=== PATIENT | male | born 1995 | race Caucasian/White ===

== ENCOUNTER 2023-07-25 17:43 | Emergency (ER) | payer OTHER ==
[2023-07-25 18:00] VITALS: BMI 19.3
[2023-07-25] MEDS ORDERED: MEROPENEM 1 GM VIAL (RESTRICTED TO ID) IVPB ONE (19:07)
[2023-07-25] MEDS ORDERED: BACITRACIN 0.9 GM PACKET ONE (19:08)
[2023-07-25 19:16] LABS: BASO % 0.5 % (0-2.0); EOS % 0.2 % (0-4.5); HEMATOCRIT 34.5 % (35.4-49); HEMOGLOBIN 11.5 GM/dL (11.7-16.9); LYMPH % 8.4 % (8-40); MCHC 33.3 g/dl (32.0-35.9); MEAN CELL VOLUME 80.8 fl (80-96); MEAN PLT VOLUME 6.3 fl (7.5-11.1); MONO % 8.1 % (3.8-10.2); NEUT % 82.8 % (42.8-82.8); PLATELET COUNT 487 10^3/uL (134-434); RBC 4.27 M/mm3 (4.00-5.60); RDW 14.4 % (11.9-15.9); WHITE BLOOD COUNT 11.1 K/mm3 (4.0-10.0)
[2023-07-25] MEDS ORDERED: BACITRACIN ZINC 15 GM TUBE TOPICAL OINTMENT ONE (19:17)
[2023-07-25 19:20] LABS: INR 1.23 (0.83-1.09); PROTHROMBIN TIME (PATIENT) 13.8 SEC (9.7-13.0)
[2023-07-25 19:23] LABS: ACTIVATED PTT 35.3 SECONDS (25.2-36.5); POTASSIUM 3.7 mmol/L (3.5-5.1)
[2023-07-25] MEDS: BACITRACIN ZINC 15 GM TUBE TOPICAL OINTMENT TP ONE (19:27)
[2023-07-25 19:28] LABS: ALBUMIN 2.5 g/dl (3.4-5.0); BLOOD UREA NITROGEN 10.6 mg/dL (7-18); CALCIUM 8.8 mg/dL (8.5-10.1)
[2023-07-25] MEDS: MEROPENEM 1 GM in DEXTROSE 5%-WATER 100 ML IVPB ONE (19:28)
[2023-07-25] MEDS: SODIUM CHLORIDE 0.9% 500 ML INFUS.BAG IV ONE (19:28)
[2023-07-25 19:31] LABS: CREATININE 0.7 mg/dL (0.55-1.3)
[2023-07-25 19:33] LABS: BILIRUBIN,TOTAL 0.2 mg/dL (0.2-1); TOT PROT 6.6 g/dl (6.4-8.2)
[2023-07-25] MEDS ORDERED: KETOROLAC TROMETHAMINE 15 MG/ML VIAL ONE (21:14)
[2023-07-25] MEDS: KETOROLAC TROMETHAMINE 15 MG/ML VIAL IVPUSH ONE (21:17)
[2023-07-25] MEDS ORDERED: ACETAMINOPHEN INJECTION 100 ML IVPB ONE (21:52)
[2023-07-25] MEDS: ACETAMINOPHEN 1000 MG/100 ML BAG IVPB ONE (21:58)
[2023-07-26 00:44] VITALS: BP 125/79; PULSE 89; RESP 17; TEMP 97.8
== END 2023-07-26 00:55 | disposition short-term general hospital (02) ==
LOC: JER 17:43
PROC: 3E03329 Introduction of Other Anti-infective into Peripheral Vein, Percutaneous Approach (ICD-10-PCS; principal; 2023-07-25)
PROC: 3E0333Z Introduction of Anti-inflammatory into Peripheral Vein, Percutaneous Approach (ICD-10-PCS; 2023-07-25)
PROC: 3E033GC Introduction of Other Therapeutic Substance into Peripheral Vein, Percutaneous Approach (ICD-10-PCS; 2023-07-25)
PROC: 3E033NZ Introduction of Analgesics, Hypnotics, Sedatives into Peripheral Vein, Percutaneous Approach (ICD-10-PCS; 2023-07-25)
DX: T25.321A Burn of third degree of right foot, initial encounter (principal); X11.0XXA Contact with hot water in bath or tub, initial encounter; Z20.822 Contact with and (suspected) exposure to COVID-19
CPT/HCPCS: 0241U-QW; 36415; 80053; 85025; 85610; 85730; 86850; 86900; 86901; 87040; 93005; 93010; 99285-25; J0131

== ENCOUNTER 2024-07-16 14:39 | Day surgery (SDC) | payer OTHER ==
[2024-07-16] MEDS: CEFTRIAXONE 2 GM-D5W BAG 2 GM/50 ML BAG IVPB ONE (15:18)
[2024-07-16 16:04] VITALS: BP 108/64; PULSE 88; RESP 18; TEMP 98.4
== END 2024-07-16 16:00 | disposition home or self-care (01) ==
LOC: FINFUSION 14:39 → FM/S 14:39 → FINFUSION 16:00
PROVIDERS: ATTEND Internal Medicine Infectious Disease
DX: M86.8X7 Other osteomyelitis, ankle and foot (principal)
CPT/HCPCS: 96365

== ENCOUNTER 2024-07-17 14:15 | Day surgery (SDC) | payer OTHER ==
[2024-07-17 14:32] VITALS: TEMP 98.2
[2024-07-17] MEDS: CEFTRIAXONE 2 GM-D5W BAG 2 GM/50 ML BAG IVPB ONE (14:35)
[2024-07-17 15:22] VITALS: BP 111/71; PULSE 78; RESP 18
== END 2024-07-17 15:27 | disposition home or self-care (01) ==
LOC: FINFUSION 14:15 → FM/S 14:17 → FINFUSION 15:27
PROVIDERS: ATTEND Internal Medicine Infectious Disease
DX: M86.8X7 Other osteomyelitis, ankle and foot (principal)
CPT/HCPCS: 96365

== ENCOUNTER 2024-07-18 15:30 | Day surgery (SDC) | payer OTHER ==
[2024-07-18 15:55] VITALS: BP 119/72; RESP 17; TEMP 97.8
[2024-07-18] MEDS: CEFTRIAXONE 2 GM in DEXTROSE 5%-WATER 100 ML IVPB ONE (16:00)
[2024-07-18 16:42] VITALS: PULSE 73
== END 2024-07-18 16:52 | disposition home or self-care (01) ==
LOC: FINFUSION 15:30 → FM/S 15:32 → FINFUSION 16:52
PROVIDERS: ATTEND Internal Medicine Infectious Disease
DX: M86.8X7 Other osteomyelitis, ankle and foot (principal)
CPT/HCPCS: 96365

== ENCOUNTER 2024-07-19 13:53 | Day surgery (SDC) | payer OTHER ==
[2024-07-19] MEDS: CEFTRIAXONE 2 GM-D5W BAG 2 GM/50 ML BAG IVPB ONE (14:45)
[2024-07-19 14:51] VITALS: TEMP 97.9
[2024-07-19 15:25] VITALS: BP 105/73; PULSE 92; RESP 16
== END 2024-07-19 15:22 | disposition home or self-care (01) ==
LOC: FINFUSION 13:53 → FM/S 14:28 → FINFUSION 15:22
PROVIDERS: ATTEND Internal Medicine Infectious Disease
DX: M86.8X7 Other osteomyelitis, ankle and foot (principal)
CPT/HCPCS: 96365

== ENCOUNTER 2024-07-20 14:16 | Day surgery (SDC) | payer OTHER ==
[2024-07-20] MEDS: CEFTRIAXONE 2 GM-D5W BAG 2 GM/50 ML BAG IVPB ONE (14:40)
[2024-07-20 15:39] VITALS: BP 108/94; PULSE 90; RESP 19; TEMP 98.9
== END 2024-07-20 15:25 | disposition home or self-care (01) ==
LOC: FINFUSION 14:16 → FM/S 14:18 → FINFUSION 15:25
PROVIDERS: ATTEND Internal Medicine Infectious Disease
DX: M86.8X7 Other osteomyelitis, ankle and foot (principal)
CPT/HCPCS: 96365

== ENCOUNTER 2024-07-21 13:24 | Day surgery (SDC) | payer OTHER ==
[2024-07-21] MEDS: CEFTRIAXONE 2 GM-D5W BAG 2 GM/50 ML BAG IVPB ONE (13:40)
[2024-07-21 14:32] VITALS: BP 115/80; PULSE 82; RESP 18; TEMP 98
== END 2024-07-21 14:32 | disposition home or self-care (01) ==
LOC: FINFUSION 13:24 → FM/S 13:28 → FINFUSION 14:32
PROVIDERS: ATTEND Internal Medicine Infectious Disease
DX: M86.8X7 Other osteomyelitis, ankle and foot (principal)
CPT/HCPCS: 96365

== ENCOUNTER 2024-07-22 13:40 | Day surgery (SDC) | payer OTHER ==
[2024-07-22] MEDS: CEFTRIAXONE 2 GM-D5W BAG 2 GM/50 ML BAG IVPB ONE (13:52)
[2024-07-22 14:40] VITALS: BP 123/65; PULSE 75; RESP 16; TEMP 98.7
== END 2024-07-22 14:47 | disposition home or self-care (01) ==
LOC: FM/S 13:40 → FINFUSION 13:40
PROVIDERS: ATTEND Internal Medicine Infectious Disease
DX: M86.8X7 Other osteomyelitis, ankle and foot (principal)
CPT/HCPCS: 96365

== ENCOUNTER 2024-07-23 13:54 | Day surgery (SDC) | payer OTHER ==
[2024-07-23] MEDS: CEFTRIAXONE 2 GM-D5W BAG 2 GM/50 ML BAG IVPB ONE (14:12)
[2024-07-23 15:00] VITALS: BP 110/78; PULSE 86; RESP 16; TEMP 98.9
== END 2024-07-23 15:01 | disposition home or self-care (01) ==
LOC: FINFUSION 13:54 → FM/S 13:56 → FINFUSION 15:01
PROVIDERS: ATTEND Internal Medicine Infectious Disease
DX: M86.8X7 Other osteomyelitis, ankle and foot (principal)
CPT/HCPCS: 96365

== ENCOUNTER 2024-07-24 14:08 | Day surgery (SDC) | payer OTHER ==
[2024-07-24] MEDS: CEFTRIAXONE 2 GM-D5W BAG 2 GM/50 ML BAG IVPB ONE (14:42)
[2024-07-24 15:24] VITALS: BP 122/85; PULSE 73; RESP 17; TEMP 98.8
== END 2024-07-24 15:20 | disposition home or self-care (01) ==
LOC: FM/S 14:08 → FINFUSION 14:08
PROVIDERS: ATTEND Internal Medicine Infectious Disease
DX: M86.8X7 Other osteomyelitis, ankle and foot (principal)
CPT/HCPCS: 96365

== ENCOUNTER 2024-07-25 13:37 | Day surgery (SDC) | payer OTHER ==
[2024-07-25] MEDS: CEFTRIAXONE 2 GM-D5W BAG 2 GM/50 ML BAG IVPB ONE (13:50)
[2024-07-25 13:56] VITALS: RESP 18; TEMP 98.1
[2024-07-25 14:17] VITALS: BP 97/67; PULSE 91
== END 2024-07-25 14:32 | disposition home or self-care (01) ==
LOC: FINFUSION 13:37 → FM/S 13:39 → FINFUSION 14:32
PROVIDERS: ATTEND Internal Medicine Infectious Disease
DX: M86.8X7 Other osteomyelitis, ankle and foot (principal)
CPT/HCPCS: 96365

== ENCOUNTER 2024-07-27 13:47 | Day surgery (SDC) | payer OTHER ==
[2024-07-27] MEDS: CEFTRIAXONE 2 GM-D5W BAG 2 GM/50 ML BAG IVPB ONE (14:21)
[2024-07-27 16:09] VITALS: BP 111/70; PULSE 75; RESP 17; TEMP 98.4
== END 2024-07-27 14:55 | disposition home or self-care (01) ==
LOC: FM/S 13:47 → FINFUSION 13:47
PROVIDERS: ATTEND Internal Medicine Infectious Disease
DX: M86.8X7 Other osteomyelitis, ankle and foot (principal)
CPT/HCPCS: 96365

== ENCOUNTER 2024-07-28 14:14 | Day surgery (SDC) | payer OTHER ==
[2024-07-28] MEDS: CEFTRIAXONE 2 GM-D5W BAG 2 GM/50 ML BAG IVPB ONE (14:33)
[2024-07-28 15:21] VITALS: BP 110/75; PULSE 66; RESP 16; TEMP 98.4
== END 2024-07-28 15:27 | disposition home or self-care (01) ==
LOC: FINFUSION 14:14 → FM/S 14:14 → FINFUSION 15:27
PROVIDERS: ATTEND Internal Medicine Infectious Disease
DX: M86.8X7 Other osteomyelitis, ankle and foot (principal)
CPT/HCPCS: 96365

== ENCOUNTER 2024-07-30 14:00 | Day surgery (SDC) | payer OTHER ==
[2024-07-30] MEDS: CEFTRIAXONE 2 GM-D5W BAG 2 GM/50 ML BAG IVPB ONE (14:26)
[2024-07-30 15:13] VITALS: BP 106/68; PULSE 78; RESP 17; TEMP 98.8
== END 2024-07-30 15:05 | disposition home or self-care (01) ==
LOC: FINFUSION 14:00 → FM/S 14:00 → FINFUSION 15:05
PROVIDERS: ATTEND Internal Medicine Infectious Disease
DX: M86.8X7 Other osteomyelitis, ankle and foot (principal)
CPT/HCPCS: 96365

== ENCOUNTER 2024-08-01 13:50 | Day surgery (SDC) | payer OTHER ==
[2024-08-01] MEDS: CEFTRIAXONE 2 GM in DEXTROSE 5%-WATER 100 ML IVPB ONE (14:08)
[2024-08-01 18:14] VITALS: BP 118/79; PULSE 79; RESP 16; TEMP 98.2
== END 2024-08-01 18:27 | disposition home or self-care (01) ==
LOC: FINFUSION 13:50 → FM/S 13:50 → FINFUSION 18:27
PROVIDERS: ATTEND Internal Medicine Infectious Disease
DX: M86.8X7 Other osteomyelitis, ankle and foot (principal)
CPT/HCPCS: 96365

== ENCOUNTER 2024-08-04 14:04 | Day surgery (SDC) | payer OTHER ==
[2024-08-04] MEDS: CEFTRIAXONE 2 GM-D5W BAG 2 GM/50 ML BAG IVPB ONE (14:21)
[2024-08-04 15:16] VITALS: BP 124/70; PULSE 80; RESP 16; TEMP 98.4
== END 2024-08-04 15:16 | disposition home or self-care (01) ==
LOC: FINFUSION 14:04 → FM/S 14:05 → FINFUSION 15:16
PROVIDERS: ATTEND Internal Medicine Infectious Disease
DX: M86.8X7 Other osteomyelitis, ankle and foot (principal)
CPT/HCPCS: 96365

== ENCOUNTER 2024-08-11 09:56 | Inpatient (IN) | payer OTHER ==
[2024-08-11 11:24] VITALS: BMI 22.9
[2024-08-11 12:02] LABS: HEMOGLOBIN 13.8 g/dL (13.7-17.5)
[2024-08-11 12:03] LABS: HEMATOCRIT 42.6 % (40.1-51.0); MCHC 32.4 g/dl (32.3-36.5); MEAN CELL VOLUME 88.4 fl (79.0-92.2); MEAN PLT VOLUME 9.1 fl (9.4-12.4); PLATELET COUNT 209 x10^3/uL (163-337)
[2024-08-11 12:12] LABS: INR 1.11 (0.83-1.09); PROTHROMBIN TIME (PATIENT) 12.1 SEC (9.7-13.0)
[2024-08-11 12:20] LABS: POTASSIUM 3.8 mmol/L (3.5-5.1)
[2024-08-11 12:22] LABS: CALCIUM 8.9 mg/dL (8.5-10.1)
[2024-08-11 12:23] LABS: BLOOD UREA NITROGEN 5.7 mg/dL (7-18)
[2024-08-11 12:26] LABS: CREATININE 0.7 mg/dL (0.55-1.3)
[2024-08-11 12:28] LABS: BILIRUBIN,TOTAL 0.3 mg/dL (0.2-1); TOT PROT 6.1 g/dl (6.4-8.2)
[2024-08-11 12:48] LABS: ERYTHROCYTE SEDIMENTATION RATE 12 mm/hr (0-10)
[2024-08-11] MEDS ORDERED: VANCOMYCIN/WATER 1250 MG 1,250 MG/250 ML BAG IVPB ONE (12:55)
[2024-08-11] MEDS: VANCOMYCIN/WATER 1250 MG 1,250 MG/250 ML BAG IVPB ONE (12:56)
[2024-08-11] MEDS: PIPERACILLIN/TAZOB 3.375 GM 3.375 GM in DEXTROSE 5%-WATER - 50 ML IVPB SCH (16:28)
[2024-08-11] MEDS: ACETAMINOPHEN 325 MG TABLET (FP) PO PRN (17:12)
[2024-08-11] MEDS: QUEtiapine FUMARATE 100 MG TABLET (FP) PO SCH (21:22)
[2024-08-12] MEDS ORDERED: VANCOMYCIN/WATER 1250 MG 1,250 MG/250 ML BAG IVPB SCH ×2 (01:00)
[2024-08-12 08:39] LABS: HEMATOCRIT 44.2 % (40.1-51.0); HEMOGLOBIN 14.4 g/dL (13.7-17.5); MCHC 32.6 g/dl (32.3-36.5); MEAN CELL VOLUME 86.5 fl (79.0-92.2); MEAN PLT VOLUME 9.3 fl (9.4-12.4); PLATELET COUNT 224 x10^3/uL (163-337)
[2024-08-12 09:00] LABS: POTASSIUM 3.8 mmol/L (3.5-5.1)
[2024-08-12 09:12] LABS: ALBUMIN 3.2 g/dl (3.4-5.0); BLOOD UREA NITROGEN 8.2 mg/dL (7-18); CALCIUM 9.5 mg/dL (8.5-10.1)
[2024-08-12 09:13] LABS: CREATININE 0.6 mg/dL (0.55-1.3); MAGNESIUM 2.2 mg/dL (1.8-2.4)
[2024-08-12 09:15] LABS: BILIRUBIN,TOTAL 0.3 mg/dL (0.2-1); TOT PROT 6.1 g/dl (6.4-8.2)
[2024-08-12 09:18] LABS: PHOSPHOROUS 3.7 mg/dL (2.5-4.9)
[2024-08-12] MEDS: ENOXAPARIN NA (PORCINE) 40 MG/0.4 ML DISP.SYRIN SQ SCH (10:36)
[2024-08-13 08:07] LABS: BASOPHILS # 0.05 x10^3/uL (0.01-0.08); MEAN CELL VOLUME 87.2 fl (79.0-92.2)
[2024-08-13 08:09] LABS: ABSOLUTE IMMATURE GRANULOCYTES 0.03 x10^3/uL (0.0-0.031); EOSINOPHIL % 7.8 % (0.8-7.0); HEMATOCRIT 46.2 % (40.1-51.0); HEMOGLOBIN 15.1 g/dL (13.7-17.5); MCHC 32.7 g/dl (32.3-36.5); MEAN PLT VOLUME 8.8 fl (9.4-12.4); MONOCYTE # 0.67 x10^3/uL (0.30-0.82); PLATELET COUNT 260 x10^3/uL (163-337)
[2024-08-13 08:41] LABS: ALBUMIN 3.2 g/dl (3.4-5.0); CALCIUM 9.3 mg/dL (8.5-10.1)
[2024-08-13 08:42] LABS: BLOOD UREA NITROGEN 12.5 mg/dL (7-18); MAGNESIUM 2.3 mg/dL (1.8-2.4)
[2024-08-13 08:43] LABS: CREATININE 0.7 mg/dL (0.55-1.3)
[2024-08-13 08:45] LABS: BILIRUBIN,TOTAL 0.1 mg/dL (0.2-1)
[2024-08-13 08:54] LABS: TOT PROT 6.5 g/dl (6.4-8.2)
[2024-08-13] MEDS: oxyCODONE HCL 5 MG TABLET PO PRN (10:07)
[2024-08-13 22:56] VITALS: RESP 20
[2024-08-14 06:38] VITALS: BP 101/65; PULSE 52; TEMP 97.5
[2024-08-14 07:59] LABS: ABSOLUTE IMMATURE GRANULOCYTES 0.02 x10^3/uL (0.0-0.031); BASOPHILS # 0.05 x10^3/uL (0.01-0.08); EOSINOPHILS # 0.37 x10^3/uL (0.04-0.54); HEMATOCRIT 46.6 % (40.1-51.0); HEMOGLOBIN 14.9 g/dL (13.7-17.5); MEAN CELL VOLUME 87.1 fl (79.0-92.2); MEAN PLT VOLUME 8.6 fl (9.4-12.4); MONOCYTE # 0.56 x10^3/uL (0.30-0.82); MONOCYTE % 10.6 % (5.3-12.2); PLATELET COUNT 270 x10^3/uL (163-337); RDW 13.9 % (11.9-15.3)
[2024-08-14 08:17] LABS: POTASSIUM 3.6 mmol/L (3.5-5.1)
[2024-08-14 08:22] LABS: CALCIUM 9.1 mg/dL (8.5-10.1)
[2024-08-14 08:23] LABS: ALBUMIN 3.2 g/dl (3.4-5.0); BLOOD UREA NITROGEN 13.4 mg/dL (7-18); MAGNESIUM 2.2 mg/dL (1.8-2.4)
[2024-08-14 08:26] LABS: CREATININE 0.7 mg/dL (0.55-1.3)
[2024-08-14 08:27] LABS: BILIRUBIN,TOTAL 0.3 mg/dL (0.2-1); TOT PROT 6.4 g/dl (6.4-8.2)
[2024-08-14] MEDS: BACITRACIN ZINC 15 GM TUBE TOPICAL OINTMENT TP SCH (13:10)
== END 2024-08-14 14:48 | disposition home or self-care (01) | DRG 383 ==
LOC: JER 09:56 → JERBED 12:56 → J8W 13:37
PROVIDERS: ADMIT Internal Medicine; ATTEND Nurse Practitioner Family
DX: L03.115 Cellulitis of right lower limb (principal); R60.0 Localized edema; F17.210 Nicotine dependence, cigarettes, uncomplicated; Z89.431 Acquired absence of right foot; F19.91 Other psychoactive substance use, unspecified, in remission
CPT/HCPCS: 36415; 73630-TC-RT-FY; 80053; 83735; 84100; 85025; 85027; 85610; 85651; 86140; 87040; 87081; 99285-25; A6022; G0463-25

== ENCOUNTER 2024-08-23 09:53 | Inpatient (IN) | payer OTHER ==
[2024-08-23] MEDS ORDERED: ACETAMINOPHEN INJECTION 100 ML ONE (11:17)
[2024-08-23] MEDS: ACETAMINOPHEN 1000 MG/100 ML BAG IVPB ONE (11:29)
[2024-08-23] MEDS: LACTATED RINGERS SOLUTION 1000 ML INFUS.BAG IV ONE (11:29)
[2024-08-23 11:51] LABS: ABSOLUTE IMMATURE GRANULOCYTES 0.07 x10^3/uL (0.0-0.031); BASOPHILS # 0.04 x10^3/uL (0.01-0.08); EOSINOPHIL % 0.7 % (0.8-7.0); EOSINOPHILS # 0.08 x10^3/uL (0.04-0.54); HEMATOCRIT 41.7 % (40.1-51.0); HEMOGLOBIN 13.8 g/dL (13.7-17.5); MCHC 33.1 g/dl (32.3-36.5); MEAN CELL VOLUME 85.5 fl (79.0-92.2); MEAN PLT VOLUME 8.9 fl (9.4-12.4); MONOCYTE # 0.63 x10^3/uL (0.30-0.82); MONOCYTE % 5.9 % (5.3-12.2); PLATELET COUNT 426 x10^3/uL (163-337); RDW 13.4 % (11.9-15.3)
[2024-08-23 12:00] LABS: INR 1.3 (0.83-1.09); PROTHROMBIN TIME (PATIENT) 14.2 SEC (9.7-13.0)
[2024-08-23 12:03] LABS: ACTIVATED PTT 29.7 SECONDS (25.2-36.5)
[2024-08-23] MEDS ORDERED: morphine SULFATE 4 MG/ML VIAL ONE (12:15)
[2024-08-23] MEDS: morphine CARPU-JECT 2 MG/1 ML DISP.SYRIN IVPUSH ONE (12:20)
[2024-08-23 12:30] LABS: CHLORIDE 104 mmol/L (98-107); SODIUM 126 mmol/L (136-145)
[2024-08-23 12:32] LABS: CALCIUM 9.2 mg/dL (8.5-10.1)
[2024-08-23 12:33] LABS: ALBUMIN 2.6 g/dl (3.4-5.0); BLOOD UREA NITROGEN 11.9 mg/dL (7-18); CO2 24 mmol/L (21-32); GLUCOSE,RANDOM 96 mg/dL (74-106); MAGNESIUM 2.5 mg/dL (1.8-2.4)
[2024-08-23 12:36] LABS: CREATININE 0.6 mg/dL (0.55-1.3); PHOSPHOROUS 3.6 mg/dL (2.5-4.9)
[2024-08-23 12:37] LABS: TOT PROT 8.2 g/dl (6.4-8.2)
[2024-08-23 12:38] LABS: ANION GAP -2 mmol/L (4-13); POTASSIUM > 10.0 mmol/L (3.5-5.1)
[2024-08-23 12:39] LABS: ALK PHOS 129 U/L (45-117)
[2024-08-23 12:51] LABS: ERYTHROCYTE SEDIMENTATION RATE 80 mm/hr (0-10)
[2024-08-23] MEDS ORDERED: PIPERACILLIN/TAZOB 4.5 GM 4.5 GM/100 ML BAG IVPB ONE (13:36)
[2024-08-23] MEDS: PIPERACILLIN/TAZOB 4.5 GM 4.5 GM in DEXTROSE 5%-WATER 100 ML IVPB ONE (13:45)
[2024-08-23] MEDS: SODIUM CHLORIDE 0.9% 500 ML INFUS.BAG IV ONE (13:45)
[2024-08-23] MEDS: VANCOMYCIN PREMIX 1.5 GM 1,500 MG/300 ML BAG IVPB ONE (14:08)
[2024-08-23 14:30] LABS: POTASSIUM 3.3 mmol/L (3.5-5.1)
[2024-08-23 14:32] LABS: CALCIUM 8.9 mg/dL (8.5-10.1)
[2024-08-23 14:33] LABS: ALBUMIN 2.7 g/dl (3.4-5.0); BLOOD UREA NITROGEN 10.8 mg/dL (7-18)
[2024-08-23 14:36] LABS: CREATININE 0.6 mg/dL (0.55-1.3)
[2024-08-23 14:37] LABS: BILIRUBIN,TOTAL 0.4 mg/dL (0.2-1); TOT PROT 6.3 g/dl (6.4-8.2)
[2024-08-23] MEDS: ACETAMINOPHEN 325 MG TABLET (FP) PO PRN (15:53)
[2024-08-23] MEDS: POTASSIUM CHLORIDE ORAL LIQUID 20 MEQ/15 ML PO ONE (15:53)
[2024-08-23] MEDS: HEPARIN NA (PORCINE) 5,000 UNITS/ML 1ML VIAL SQ SCH (15:53)
[2024-08-23 16:15] VITALS: BMI 23.7
[2024-08-23] MEDS: VANCOMYCIN HCL 1,500 MG in DEXTROSE 5%-WATER - 500 ML IVPB ONE (17:06)
[2024-08-23] MEDS: LINEZOLID 600 MG PREMIX BAG 600 MG in PREMIX 300 IV ONE (17:07)
[2024-08-23] MEDS: KETOROLAC TROMETHAMINE 15 MG/ML VIAL IVPUSH PRN (17:39)
[2024-08-23] MEDS: PIPERACILLIN/TAZOB 3.375 GM 3.375 GM in DEXTROSE 5%-WATER - 50 ML IVPB SCH (20:48)
[2024-08-23] MEDS: QUEtiapine FUMARATE 100 MG TABLET (FP) PO SCH (22:38)
[2024-08-24 08:05] LABS: ABSOLUTE IMMATURE GRANULOCYTES 0.03 x10^3/uL (0.0-0.031); BASOPHILS # 0.06 x10^3/uL (0.01-0.08); EOSINOPHIL % 3.4 % (0.8-7.0); EOSINOPHILS # 0.26 x10^3/uL (0.04-0.54); HEMATOCRIT 40.5 % (40.1-51.0); HEMOGLOBIN 13.2 g/dL (13.7-17.5); MCHC 32.6 g/dl (32.3-36.5); MEAN CELL VOLUME 86.4 fl (79.0-92.2); MEAN PLT VOLUME 8.8 fl (9.4-12.4); MONOCYTE # 0.64 x10^3/uL (0.30-0.82); MONOCYTE % 8.5 % (5.3-12.2); PLATELET COUNT 367 x10^3/uL (163-337); RDW 13.6 % (11.9-15.3)
[2024-08-24 08:22] LABS: POTASSIUM 3.6 mmol/L (3.5-5.1)
[2024-08-24 08:27] LABS: ALBUMIN 2.4 g/dl (3.4-5.0); CALCIUM 9.1 mg/dL (8.5-10.1)
[2024-08-24 08:28] LABS: BLOOD UREA NITROGEN 11.2 mg/dL (7-18)
[2024-08-24 08:31] LABS: CREATININE 0.7 mg/dL (0.55-1.3); PHOSPHOROUS 3.9 mg/dL (2.5-4.9)
[2024-08-24 08:32] LABS: BILIRUBIN,TOTAL 0.2 mg/dL (0.2-1); TOT PROT 5.9 g/dl (6.4-8.2)
[2024-08-24] MEDS ORDERED: morphine CARPU-JECT 2 MG/1 ML DISP.SYRIN IVPUSH PRN (09:09)
[2024-08-24] MEDS: GABAPENTIN 300 MG CAPSULE PO SCH (09:55)
[2024-08-24] MEDS: NICOTINE 21 MG/24 HOURS TOPICAL PATCH TD SCH (09:56)
[2024-08-24] MEDS: MULTIVITAMINS (DAILY MVI) TABLET (FP) PO SCH (10:24)
[2024-08-24] MEDS ORDERED: KETOROLAC TROMETHAMINE 15 MG/ML VIAL IVPUSH PRN (10:40)
[2024-08-24] MEDS ORDERED: ACETAMINOPHEN 325 MG TABLET (FP) PO PRN (10:40)
[2024-08-24] MEDS: metroNIDAZOLE 250 MG TABLET PO SCH (14:49)
[2024-08-24] MEDS: LACTOBACILLUS ACIDOPHILUS 1 TABLET PO SCH (16:32)
[2024-08-24] MEDS: CEFTRIAXONE 2 GM-D5W BAG 2 GM/50 ML BAG IVPB SCH (16:32)
[2024-08-24] MEDS ORDERED: VANCOMYCIN ORAL SOLUTION 125 MG/2.5 ML PO SCH (18:00)
[2024-08-24] MEDS: PIPERACILLIN/TAZOB 3.375 GM 3.375 GM in DEXTROSE 5%-WATER - 50 ML IVPB SCH (18:42)
[2024-08-25] MEDS: PREGABALIN 25 MG CAPSULE PO ONE (11:51)
[2024-08-25] MEDS: DOXYCYCLINE INJECTION 100 MG in DEXTROSE 5%-WATER 100 ML IVPB SCH (22:08)
[2024-08-25 23:39] VITALS: RESP 20
[2024-08-26 07:55] VITALS: BP 106/69; PULSE 66; TEMP 97.9
[2024-08-26 08:05] LABS: ABSOLUTE IMMATURE GRANULOCYTES 0.05 x10^3/uL (0.0-0.031); BASOPHILS # 0.07 x10^3/uL (0.01-0.08); EOSINOPHIL % 6.5 % (0.8-7.0); EOSINOPHILS # 0.39 x10^3/uL (0.04-0.54); HEMATOCRIT 41.1 % (40.1-51.0); HEMOGLOBIN 13.1 g/dL (13.7-17.5); MCHC 31.9 g/dl (32.3-36.5); MEAN CELL VOLUME 87.6 fl (79.0-92.2); MEAN PLT VOLUME 8.9 fl (9.4-12.4); MONOCYTE # 0.47 x10^3/uL (0.30-0.82); MONOCYTE % 7.8 % (5.3-12.2); PLATELET COUNT 399 x10^3/uL (163-337); RDW 13.7 % (11.9-15.3)
[2024-08-26 08:24] LABS: CHLORIDE 110 mmol/L (98-107); POTASSIUM 3.9 mmol/L (3.5-5.1); SODIUM 143 mmol/L (136-145)
[2024-08-26 08:29] LABS: CALCIUM 8.7 mg/dL (8.5-10.1)
[2024-08-26 08:30] LABS: ALBUMIN 2.5 g/dl (3.4-5.0); ANION GAP 9 mmol/L (4-13); BLOOD UREA NITROGEN 10.4 mg/dL (7-18); CO2 24 mmol/L (21-32); GLUCOSE,RANDOM 101 mg/dL (74-106)
[2024-08-26 08:33] LABS: CREATININE 0.6 mg/dL (0.55-1.3); SGOT/AST 36 U/L (15-37); SGPT/ALT 24 U/L (13-61)
[2024-08-26 08:35] LABS: BILIRUBIN,TOTAL < 0.1 mg/dL (0.2-1); TOT PROT 5.7 g/dl (6.4-8.2)
[2024-08-26 08:36] LABS: ALK PHOS 93 U/L (45-117)
[2024-08-26] MEDS: AMOX TR/POT CLAV 875MG/125MG TABLETS (FP) PO SCH (12:02)
[2024-08-26] MEDS: morphine SULFATE IMMEDIATE RELEASE 30 MG TAB PO PRN (12:02)
[2024-08-26] MEDS: DOXYCYCLINE HYCLATE 100 MG CAPSULE PO SCH (12:09)
[2024-08-26] MEDS ORDERED: DOXYCYCLINE INJECTION 100 MG in DEXTROSE 5%-WATER 100 ML IVPB SCH (22:00)
[2024-08-27] MEDS ORDERED: CEFTRIAXONE 2 GM-D5W BAG 2 GM/50 ML BAG IVPB SCH (10:00)
== END 2024-08-26 12:56 | disposition home health service (06) | DRG 603 ==
LOC: JER 09:53 → JERBED 13:18 → J8W 14:39
PROVIDERS: ADMIT Internal Medicine; ATTEND Nurse Practitioner Family
DX: L03.115 Cellulitis of right lower limb (principal); E87.1 Hypo-osmolality and hyponatremia; G62.9 Polyneuropathy, unspecified; R19.7 Diarrhea, unspecified; E83.41 Hypermagnesemia; F17.210 Nicotine dependence, cigarettes, uncomplicated
CPT/HCPCS: 0241U-QW; 36415; 73630-TC-RT-FY; 80053; 83605; 83735; 84100; 85025; 85610; 85651; 85730; 86140; 86850; 86900; 86901; 87040; 87070; 87205; 93005; 93010; 99285-25